=== PATIENT | male | born 1955 | race Caucasian/White ===

== ENCOUNTER → 2018-02-27 | Outpatient (CLI) | payer BC | LOC: GMAH 12:11 | PROVIDERS: ATTEND Family Medicine | DX: Z00.00 Encounter for general adult medical examination without abnormal findings (principal); Z12.5 Encounter for screening for malignant neoplasm of prostate ==

== ENCOUNTER → 2018-09-04 | Outpatient (CLI) | payer BC | LOC: GMAH 10:22 | PROVIDERS: ATTEND Family Medicine | DX: M10.9 Gout, unspecified (principal) ==

== ENCOUNTER → 2019-03-12 | Outpatient (CLI) | payer BC ==
--- NOTE | 2019-03-12 11:59 | MRI ---
EXAM DESCRIPTION: Lumbar Spine w/o Contrast CLINICAL HISTORY: 64 years Male, RADICULOPATHY LUMBAR REGION COMPARISON: MRI of the lumbar spine dated 02/29/2012. TECHNIQUE: Multiplanar multiecho imaging of the lumbar spine was performed without intravenous contrast administration. FINDINGS: Straightening of the normal lordotic curvature of the lumbar spine is noted. The vertebral body heights are well-maintained with no acute compression deformity. Multilevel intervertebral disc space narrowing is noted. The conus medullaris terminates at T12-L1 intervertebral disc space. The visualized spinal cord demonstrates no signal abnormality. L1-L2: Bilateral facet arthropathy with no central canal stenosis or neural foraminal narrowing. L2-L3: 5 mm retrolisthesis of L2 over L3. Posterior discussed effect complex measuring 5.4 mm and facet arthropathy with no central canal stenosis. Severe bilateral lateral recess narrowing, moderate to severe right and moderate left neural foraminal narrowing is also identified. L3-L4: 4 mm retrolisthesis of L3 over L4 and facet arthropathy with no central canal stenosis. Severe right lateral recess narrowing is present. Moderate bilateral neural foraminal narrowing with changes worse on the right side. L4-L5: 3 mm retrolisthesis of L4 over L5 and facet arthropathy with no central canal stenosis. Severe bilateral lateral recess narrowing, moderate right and moderate to severe left neural foraminal narrowing is also identified. L5-S1: 5.4 mm posterior disc bulge and facet arthropathy with no central canal stenosis. Moderate bilateral neural foraminal narrowing is identified. The visualized prevertebral and paravertebral soft tissues appear unremarkable. IMPRESSION: Multilevel degenerative disc disease and facet arthropathy throughout the lumbar spine with variable degrees of lateral recess and neural foraminal narrowing as described above. These changes appear to have slightly worsened compared to prior MRI dated 02/29/2012. Electronically signed by: Shara Jain MD 03/12/2019 11:58 AM [employer]
== END ==
LOC: MRI 09:38
PROVIDERS: ATTEND Physician Assistant Medical
DX: M47.26 Other spondylosis with radiculopathy, lumbar region (principal); M51.16 Intervertebral disc disorders with radiculopathy, lumbar region; M48.062 Spinal stenosis, lumbar region with neurogenic claudication; M41.26 Other idiopathic scoliosis, lumbar region; G89.4 Chronic pain syndrome; Z79.891 Long term (current) use of opiate analgesic

== ENCOUNTER → 2020-04-21 | Outpatient (CLI) | payer BC, MEDICARE | LOC: GMA MATASK 10:51 | PROVIDERS: ATTEND Family Medicine | DX: Z00.00 Encounter for general adult medical examination without abnormal findings (principal); Z12.5 Encounter for screening for malignant neoplasm of prostate; I10 Essential (primary) hypertension ==